=== PATIENT | female | born 1955 | race Caucasian/White ===

== ENCOUNTER 2020-05-07 22:21 | Emergency (ER) | payer BC ==
[2020-05-07] MEDS: Lidocaine 1% 20 ML MDV INJECT ONE (23:15)
--- NOTE | 2020-05-07 23:23 | EDM.PDOC ---
ED HPI GENERAL MEDICAL PROBLEM - General Chief Complaint: General Stated Complaint: fish hook in R outer pinky finger Time Seen by Provider: 05/07/20 23:00 Source of Information: Reports: Patient History Limitations: Reports: No Limitations - History of Present Illness INITIAL COMMENTS - FREE TEXT/NARRATIVE: 65 yo female presents to ER with fish hook in her right 5th finger. Onset: Today Duration: Minutes:, Constant Location: Reports: Upper Extremity, Right (5th finger ) Quality: Reports: Throbbing Severity: Moderate Improves with: Reports: None Worsens with: Reports: Movement Associated Symptoms: Reports: No Other Symptoms ED ROS GENERAL - Review of Systems Review Of Systems: Comprehensive ROS is negative, except as noted in HPI. ED EXAM, GENERAL - Physical Exam Exam: See Below Exam Limited By: No Limitations General Appearance: Alert, Anxious, Obese Extremities: Other (Fish hook embedded into right 5th finger ulnar side) Neurological: Alert, Oriented, No Motor/Sensory Deficits Psychiatric: Anxious Skin Exam: Warm, Dry, Intact ED GENERAL MEDICAL PROCEDURES - Additional/Other Procedure(s) Other (Free Text) Procedure(s): Right fifth finger was prepped with ChloraPrep. 4 cc of 1% plain lidocaine using a 25-gauge needle was used to perform a digital block. After adequate anesthetic the fishhook was removed with a needle-nose concrete mixer truck driver without difficulty. Patient soak the hand in sterile saline and Betadine and a Band-Aid then was applied. Patient's tetanus was updated. Departure - Departure Time of Disposition: 23:29 Disposition: Home, Self-Care 01 Condition: Good Clinical Impression: Gregory injury to finger Qualifiers: Encounter type: initial encounter Laterality: right Qualified Code(s): S69.91XA - Unspecified injury of right wrist, hand and finger(s), initial encounter - Discharge Information Referrals: Tapan Radford PA-C [Primary Care Provider] - - Assessment/Plan Assessment:: Gregory into the right fifth finger Plan: Gregory was removed after digital block to the right fifth finger using a needle-nose concrete mixer truck driver without difficulty. Finger was soaked in Betadine saline solution and then dried. Band-Aid was placed. Tetanus was updated. Patient will be discharged home on 3 days of antibiotics.
[2020-05-07 23:33] VITALS: BP 168/89; PULSE 112
[2020-05-07] MEDS: Diphtheria,Pertussis(Acell),Tetanus Vaccine 0.5 ML Syringe IM ONE (23:40)
[2020-05-07] MEDS: Cephalexin 250 MG Cap PO ONE (23:42)
== END 2020-05-07 23:50 | disposition home or self-care (01) ==
LOC: KA.ED 22:21
DX: S60.456A Superficial foreign body of right little finger, initial encounter (principal); Z23 Encounter for immunization; W45.8XXA Other foreign body or object entering through skin, initial encounter
CPT/HCPCS: 10120; 64450; 90471; 90715; 99282; 99283-25; A9270-GY

== ENCOUNTER 2023-07-17 12:08 | Emergency (ER) | payer BC ==
[2023-07-17] MEDS ORDERED: Naloxone 0.4 MG/ML SDV IVPUSH PRN (12:40)
[2023-07-17] MEDS: Morphine 2 MG/ML SYRINGE IVPUSH ONE ×2 (12:42→13:38)
[2023-07-17] MEDS: Ondansetron 4 MG/2 ML SDV IVPUSH ONE (12:43)
[2023-07-17 12:44] LABS: BASOPHILS ABSOLUTE AUTO 0.05 10^3/uL (0.00-0.10); BASOPHILS PERCENT AUTO 0.6 % (0.0-1.0); EOSINOPHILS ABSOLUTE AUTO 0.39 10^3/uL (0.10-0.30); EOSINOPHILS PERCENT AUTO 4.4 % (1.0-3.0); HEMATOCRIT 40.4 % (37.0-47.0); HEMOGLOBIN 13.8 g/dL (12.0-16.0); IMMATURE GRAN ABSOLUTE AUTO 0.04 10^3/uL (0.00-0.50); IMMATURE GRAN PERCENT AUTO 0.4 % (0.0-5.0); LYMPHOCYTES PERCENT AUTO 26.8 % (20.0-40.0); MEAN CORPUSCULAR HEMOGLOBIN 31.1 pg (27.0-31.0); MEAN CORPUSCULAR HGB CONC 34.2 g/dL (32.0-36.0); MEAN PLATELET VOLUME 9.2 fL (7.4-10.4); MONOCYTES PERCENT AUTO 7.8 % (2.0-8.0); NEUTROPHILS ABSOLUTE AUTO 5.38 10^3/uL (2.50-7.00); PLATELET COUNT,PLT 306 10^3/uL (150-400); RED BLOOD CELL COUNT 4.44 10^6/uL (3.80-5.50); RED CELL DISTRIBUTION WIDTH 11.9 % (11.5-14.5); WHITE BLOOD CELL COUNT,WBC 8.96 10^3/uL (5.00-10.00)
[2023-07-17 12:55] LABS: ALANINE AMINOTRANSFERASE,ALT 17 U/L (14-63); ALBUMIN 2.96 g/dL (3.40-5.00); ALKALINE PHOSPHATASE 162 U/L (46-116); ANION GAP 12.5 mmol/L (5-15); BILIRUBIN TOTAL 0.1 mg/dL (0.2-1.0); BLOOD UREA NITROGEN,BUN 19 mg/dL (7-18); CALCIUM 8.8 mg/dL (8.7-10.3); CHLORIDE,CL 99 mmol/L (98-107); CREATININE 0.53 mg/dL (0.51-1.17); EST CRCL DRUG DOSING (CG) 97.74 mL/min; GLUCOSE RANDOM 304 mg/dL (70-140); LIPASE 85 U/L (16-77); POTASSIUM,K 3.5 mmol/L (3.5-5.1); PROTEIN TOTAL,TP 7.1 g/dL (6.4-8.2); SODIUM,NA 134 mmol/L (136-145)
[2023-07-17 12:56] LABS: ASPARTATE AMNIOTRANSFERASE,AST < 9 U/L (15-37); C-REACTIVE PROTEIN < 0.50 mg/dL (0.00-0.50); ESTIMATED GFR 102 mL/min (>=60)
[2023-07-17] MEDS: Sodium Chloride 0.9% 50 ML IV SCH (13:11)
[2023-07-17] MEDS: Iopamidol 755 Mg/ML 100 ML Bottle IV ONE (13:11)
[2023-07-17 13:17] LABS: APPEARANCE,URINE SLIGHTLY CLOUDY (CLEAR); BILIRUBIN,URINE NEGATIVE (NEGATIVE); COLOR,URINE YELLOW (YELLOW); GLUCOSE,URINE 250 mg/dL (NEGATIVE); KETONES,URINE TRACE mg/dL (NEGATIVE); LEUKOCYTE ESTERASE,URINE TRACE (NEGATIVE); NITRITE,URINE NEGATIVE (NEGATIVE); OCCULT BLOOD,URINE NEGATIVE (NEGATIVE); PROTEIN,URINE 30 mg/dL (NEGATIVE); UROBILINOGEN,URINE 0.2 E.U./dL (0.2-1.0)
[2023-07-17 13:22] LABS: BACTERIA,URINE FEW /HPF (NONE TO FEW); EPITHELIAL CELLS,URINE FEW /LPF; MUCUS,URINE FEW /LPF (NEGATIVE); RBC,URINE 0-5 /HPF (0-5)
[2023-07-17 13:23] LABS: HYALINE CASTS,URINE RARE
[2023-07-17] MEDS ORDERED: Magnesium Citrate Solution 296 ML Bottle PO ONE (14:59)
== END 2023-07-17 15:34 | disposition home or self-care (01) ==
LOC: KA.ED 12:08
DX: K59.00 Constipation, unspecified (principal); I10 Essential (primary) hypertension; J44.9 Chronic obstructive pulmonary disease, unspecified; Z88.8 Allergy status to other drugs, medicaments and biological substances; Z79.899 Other long term (current) drug therapy
CPT/HCPCS: 74177; 80053; 81001; 83605; 83690; 85025; 86140; 87086; 96374; 96375; 96376; 99284-25; J2270; J2405; J3490; Q9967

== ENCOUNTER 2023-08-27 16:07 | Emergency (ER) | payer BC ==
[2023-08-27] MEDS: methylPREDNISolone Sodium Succinate 125 MG/2 ML SDV IVPUSH ONE (16:07)
[2023-08-27] MEDS: LORazepam 0.5 MG Tab PO ONE (17:00)
[2023-08-27] MEDS: diphenhydrAMINE 50 MG/ML SDV IVPUSH ONE (17:07)
[2023-08-27] MEDS: Ketorolac 30 MG/ML SDV IVPUSH ONE (17:11)
[2023-08-27] MEDS: hydrOXYzine HCl 50 MG/ML SDV IM ONE (17:15)
[2023-08-27 17:27] LABS: BASOPHILS ABSOLUTE AUTO 0.05 10^3/uL (0.00-0.10); BASOPHILS PERCENT AUTO 0.6 % (0.0-1.0); EOSINOPHILS ABSOLUTE AUTO 0.35 10^3/uL (0.10-0.30); EOSINOPHILS PERCENT AUTO 4.3 % (1.0-3.0); HEMOGLOBIN 13.1 g/dL (12.0-16.0); IMMATURE GRAN ABSOLUTE AUTO 0.02 10^3/uL (0.00-0.50); IMMATURE GRAN PERCENT AUTO 0.2 % (0.0-5.0); LYMPHOCYTES ABSOLUTE AUTO 2.32 10^3/uL (1.00-4.00); LYMPHOCYTES PERCENT AUTO 28.5 % (20.0-40.0); MEAN CORPUSCULAR HEMOGLOBIN 31.4 pg (27.0-31.0); MEAN CORPUSCULAR HGB CONC 33.6 g/dL (32.0-36.0); MEAN CORPUSCULAR VOLUME 93.5 fL (82.0-92.0); MEAN PLATELET VOLUME 9.1 fL (7.4-10.4); MONOCYTES ABSOLUTE AUTO 0.67 10^3/uL (0.10-0.80); MONOCYTES PERCENT AUTO 8.2 % (2.0-8.0); NEUTROPHILS ABSOLUTE AUTO 4.73 10^3/uL (2.50-7.00); NEUTROPHILS PERCENT AUTO 58.2 % (50.0-70.0); PLATELET COUNT,PLT 265 10^3/uL (150-400); RED BLOOD CELL COUNT 4.17 10^6/uL (3.80-5.50); RED CELL DISTRIBUTION WIDTH 12.2 % (11.5-14.5); WHITE BLOOD CELL COUNT,WBC 8.14 10^3/uL (5.00-10.00)
[2023-08-27 17:43] LABS: ALBUMIN 3.13 g/dL (3.40-5.00); ANION GAP 11.9 mmol/L (5-15); BILIRUBIN TOTAL 0.2 mg/dL (0.2-1.0); CALCIUM 8.5 mg/dL (8.7-10.3); CARBON DIOXIDE,CO2 29.9 mmol/L (21.0-32.0); CREATININE 0.38 mg/dL (0.51-1.17); EST CRCL DRUG DOSING (CG) 136.33 mL/min; POTASSIUM,K 3.8 mmol/L (3.5-5.1); PROTEIN TOTAL,TP 7.1 g/dL (6.4-8.2)
== END 2023-08-27 19:20 | disposition home or self-care (01) ==
LOC: KA.ED 16:07
DX: L29.9 Pruritus, unspecified (principal); I10 Essential (primary) hypertension; J45.909 Unspecified asthma, uncomplicated; F17.210 Nicotine dependence, cigarettes, uncomplicated; Z88.8 Allergy status to other drugs, medicaments and biological substances
CPT/HCPCS: 36415; 80053; 85025; 96372; 96374; 96375; 99283; 99283-25; A9270-GY; J1200; J1885; J2919; J3410